=== PATIENT | female | born 1975 | race Caucasian/White ===

== ENCOUNTER → 2018-03-19 15:11 | Outpatient (CLI) | payer OTHER, SELFPAY ==
--- NOTE | 2018-03-19 15:18 | RAD_ITS ---
STUDY: X-RAY - RIGHT HAND, ATTENTION 4TH FINGER REASON FOR EXAM: Female, 42 years old. Right 4th digit injury, bruising, pain near distal interphalangeal joint. TECHNIQUE: 3 view(s) of the finger were obtained. COMPARISON: None. FINDINGS: There appears to be minimal soft tissue swelling of the 4th digit. No dislocation. There is a curvilinear slender lucency traversing the mid to distal diaphysis of the middle phalanx, 4th digit. This appears to have corticated margins, favoring nutrient vessel. Possible nondisplaced phalangeal fracture. RAD/Finger(s) Min 2 Views IMPRESSION: 4th digit middle phalanx, slender lucency favoring nutrient vessel. Nondisplaced fracture not entirely excluded. Minimal soft tissue swelling. Electronically Signed: Sergei Landry, at 10:47 EDT Tel , Service support ,
== END ==
PROVIDERS: Family Provider Family Medicine; PCP Family Medicine; Visit Provider Family Medicine
DX: S69.91XA Unspecified injury of right wrist, hand and finger(s), initial encounter (principal)
CPT/HCPCS: 73140

== ENCOUNTER → 2018-12-02 09:22 | Outpatient (CLI) | payer OTHER, SELFPAY ==
[2018-12-02 12:42] LABS: Mean Corp Hgb Conc 32.6 g/gl (32-36); Mean Corpuscular Hgb 30.2 pg (27.0-32.0); Mean Corpuscular Volume 92.7 fL (81-99); Mean Platelet Vol. 9.2 fl (6.2-12.0); Platelet Count 299 K/mm3 (150-450); RBC Distribution Width SD 43.5 fl (35.1-43.9); Red Blood Count 4.64 M/mm3 (4.2-5.4); White Blood Count 9.5 K/mm3 (4.4-11.0)
[2018-12-02 12:44] LABS: Scan Indicated on CBC? Y/N NO
[2018-12-02 12:58] LABS: Vitamin D,25 Hydroxy 54.9 ng/mL (29.95-100.01)
[2018-12-02 13:03] LABS: Anion Gap 9 (5-15); BUN 10 mg/dL (7-18); BUN/Creat Ratio 12.1 RATIO (10-20); Calcium,Total 8.9 mg/dL (8.5-10.1); Chloride 102 mmol/L (98-107); Cholesterol 238 mg/dL (200); Creatinine, Serum 0.83 mg/dL (0.55-1.02); EST Glomerular Filtration Rate 80 mL/min (>60); Est Glom Filt Rate - Afr Amer 97 mL/min (>60); Glucose 107 mg/dL (74-106); High Density Lipoprotein 41 mg/dL; Potassium 4.1 mmol/L (3.5-5.1); Sodium Level 137 mmol/L (136-145); Triglycerides 248 mg/dL; Very Low Density Lipoprotein 50 mg/dL (5-40)
== END ==
LOC: MTLAB 09:25
PROVIDERS: Family Provider Family Medicine; PCP Family Medicine; Referring Provider Family Medicine; Visit Provider Family Medicine
DX: Z13.1 Encounter for screening for diabetes mellitus (principal); Z13.220 Encounter for screening for lipoid disorders; E55.9 Vitamin D deficiency, unspecified; R10.13 Epigastric pain
CPT/HCPCS: 36415; 80048; 80061; 82306; 85027

== ENCOUNTER → 2020-03-05 10:27 | Outpatient (CLI) | payer OTHER, SELFPAY ==
--- NOTE | 2020-03-05 10:33 | RAD_ITS ---
STUDY: X-RAY - LUMBAR SPINE REASON FOR EXAM: Female, 44 years old. Injury many years ago, fell on tailbone -- back pain now and to the left side TECHNIQUE: 3 view(s) of the lumbar spine were obtained. COMPARISON: None FINDINGS: There is straightening of the normal lumbar lordosis. There is a mild levoscoliosis of the lumbar spine. There is a normal alignment of the vertebrae. Mild degree of spondylosis at the L3-L4 L4-L5 and L5-S1 levels. Disc space narrowing at the L3-L4, L4-L5 and L5-S1 levels. The soft tissue structures are unremarkable. RAD/Lumbar Spine 2 or 3 Views IMPRESSION: Degenerative changes of the spine, as detailed above. Mild levoscoliosis. Straightening of the normal lumbar lordosis. Electronically Signed: Anders Epperson, at 10:54 EDT , Service support ,
== END ==
PROVIDERS: PCP Family Medicine; Referring Provider Family Medicine; Visit Provider Family Medicine
DX: M54.5 Low back pain (principal)
CPT/HCPCS: 72100

== ENCOUNTER → 2020-05-18 13:35 | Outpatient (CLI) | payer OTHER, SELFPAY ==
[2020-05-18 15:19] LABS: Hematocrit 41.3 % (37-47); Hemoglobin 13.4 g/dL (12.0-15.0); Mean Corp Hgb Conc 32.4 g/dL (32-36); Mean Corpuscular Hgb 29.6 pg (27.0-32.0); Mean Corpuscular Volume 91.2 fL (81-99); Mean Platelet Vol. 8.8 fl (6.2-12.0); Platelet Count 345 K/mm3 (150-450); RBC Distribution Width CV 13.2 % (11.6-14.6); RBC Distribution Width SD 43.8 fl (35.1-43.9); Red Blood Count 4.53 M/mm3 (4.2-5.4)
[2020-05-18 16:04] LABS: ALB/GLOB Ratio 1.2 RATIO (0.9-2.4); AST(SGOT) 22 U/L (15-37); Alanine Aminotransfer ALT/SGPT 40 U/L (13-56); Albumin, Serum 4.1 g/dL (3.2-5.0); Alkaline Phosphatase 107 U/L (45-117); Anion Gap 4 (5-15); BUN 11 mg/dL (7-18); BUN/Creat Ratio 14.6 RATIO (10-20); Chloride 106 mmol/L (98-107); Creatinine, Serum 0.76 mg/dL (0.55-1.02); EST Glomerular Filtration Rate 88 mL/min (>60); Est Glom Filt Rate - Afr Amer 107 mL/min (>60); Globulin 3.5 g/dL (2.2-4.2); Glucose 95 mg/dL (74-106); Potassium 3.7 mmol/L (3.5-5.1); Protein, Total 7.6 g/dL (6.4-8.2); Sodium Level 138 mmol/L (136-145); Thyroid Stim Hormone (TSH) 1.66 uIU/mL (0.358-3.74)
== END ==
LOC: MFPLAB 13:36
PROVIDERS: PCP Family Medicine; Referring Provider Family Medicine; Visit Provider Family Medicine
DX: M79.89 Other specified soft tissue disorders (principal)
CPT/HCPCS: 36415; 80053; 84443; 85027

== ENCOUNTER → 2020-06-10 13:51 | Outpatient (CLI) | payer OTHER, SELFPAY ==
--- NOTE | 2020-06-10 13:55 | ECHOD_ITS ---
Reason For Study: Leg Swelling Procedure This was a 2D Doppler, Color Flow transthoracic echocardiogram. Exam performed in department. Left Ventricle Normal LV size. Left ventricular systolic function is normal. The estimated ejection fraction is 55 %. Normal diastology for age. No regional wall motion abnormalities noted. Right Ventricle Normal RV size. Normal systolic function. Atria Normal left atrium. Mitral Valve Normal mitral valve. Tricuspid Valve Normal tricuspid valve. Aortic Valve Normal aortic valve. Pulmonic Valve Normal pulmonic valve. Great Vessels Normal aortic root. The pulmonary artery is normal size. Normal inferior vena cava. Pericardium/Pleural No pericardial effusion. MMode/2D Measurements & Calculations LVIDd: 4.2 cm IVSd: 0.97 cm Ao root diam: 2.8 cm LVIDs: 2.9 cm LVPWd: 1.0 cm RVDd: 2.3 cm FS: 31.9 % LAV(MOD-bp): 23.3 ml LVAd ap4: 20.8 cm2 SV(MOD-sp4): 29.2 ml LAV(MOD-bp) Indexed: 12.2 ml/m2 EDV(MOD-sp4): 46.9 ml LAV(MOD-sp2): 20.3 ml EDV(sp4-el): 48.2 ml LAV(MOD-sp4): 24.9 ml LVAs ap4: 11.3 cm2 ESV(MOD-sp4): 17.7 ml ESV(sp4-el): 17.7 ml EF(MOD-sp4): 62.2 % EF(sp4-el): 63.3 % SV(sp4-el): 30.5 ml LA A4 area: 12.0 cm2 LA dimension(2D): 3.2 cm RA A4 area: 8.4 cm2 Doppler Measurements & Calculations MV E max jimmie: 66.2 cm/sec Lat Peak E' Jimmie: 16.0 cm/sec Med Peak E' Jimmie: 7.6 cm/sec MV A max jimmie: 83.1 cm/sec E/E' lat: 4.1 E/E' med: 8.8 MV E/A: 0.80 Ao V2 max: 135.2 cm/sec LV V1 max: 105.3 cm/sec PA V2 max: 89.6 cm/sec Ao max P.3 mmHg LV V1 max P.4 mmHg Ao V2 mean: 94.9 cm/sec Ao mean P.0 mmHg Ao V2 VTI: 22.1 cm TR max jimmie: 194.5 cm/sec TR max P.1 mmHg Interpretation Summary Normal LV size. Left ventricular systolic function is normal. The estimated ejection fraction is 55 %. Structurally normal valves. Ordering Physician: Hubert Ge Referring Physician: Hubert Ge Performed By: Alea Watkins, BRANNON, RVT
== END ==
LOC: CVS 13:54
PROVIDERS: PCP Family Medicine; Referring Provider Family Medicine; Visit Provider Family Medicine
DX: M79.89 Other specified soft tissue disorders (principal)
CPT/HCPCS: 93306

== ENCOUNTER 2020-11-16 09:41 | Outpatient (RCR) | payer OTHER, SELFPAY | END 2020-11-16 23:59 | LOC: IMMUN 09:41 | PROVIDERS: PCP Family Medicine; Visit Provider Family Medicine | DX: Z23 Encounter for immunization (principal) | CPT/HCPCS: 0011A; 0012A; 91301 ==

== ENCOUNTER → 2020-12-13 09:02 | Outpatient (CLI) | payer OTHER, SELFPAY ==
[2020-12-06 08:54] VITALS: BMI 31.9
--- NOTE | 2020-12-13 09:08 | RAD_ITS ---
STUDY: X-RAY - PARANASAL SINUSES REASON FOR EXAM: Female, 45 years old. Headaches across forehead TECHNIQUE: 3 view(s) of the paranasal sinuses were obtained. COMPARISON: None. FINDINGS: Normal visualized frontal, maxillary, ethmoidal and sphenoid sinuses. Normal visualized facial bones. The soft tissue structures are unremarkable. RAD/Sinuses min 3 Views IMPRESSION: Normal x-rays of the paranasal sinuses. Electronically Signed: Anders Epperson MD at 10:21 EST , Service support ,
[2020-12-13 12:08] LABS: Erythrocyte Sedimentation Rate 6 mm/hr (0-30)
[2020-12-13 12:10] LABS: Absolute Lymphocyte Count 2.88 X10^3/uL (0.83-4.51); Absolute Neutrophil Count 6.2 X10^3/uL (2.0-7.7); Basophil# 0.04 X10^3/uL; Basophil% 0.4 % (0-1); Eosinophil# 0.07 X10^3/uL; Eosinophils% 0.7 % (0-5); Hemoglobin 13.9 g/dL (12.0-15.0); Lymphocyte # 2.88 X10^3/ul (4.0); Lymphocyte % 29.5 % (19-41); Mean Corp Hgb Conc 33.9 g/dL (32-36); Mean Corpuscular Volume 88.6 fL (81-99); Mean Platelet Vol. 9.2 fl (6.2-12.0); Monocyte% 5.1 % (0-10); NRBC Flagged by Analyzer 0 % (0-5); Neutrophil # 6.19 X10^3/uL (2.7-7.7); Neutrophil % 63.6 % (47-70); Platelet Count 333 K/mm3 (150-450); RBC Distribution Width SD 39.1 fl (35.1-43.9); Red Blood Count 4.63 M/mm3 (4.2-5.4); White Blood Count 9.8 K/mm3 (4.4-11.0)
[2020-12-13 12:31] LABS: Vitamin B12 428 pg/mL (211-911); Vitamin D,25 Hydroxy 29.4 ng/mL
[2020-12-13 12:34] LABS: Hemoglobin A1c 6.4 % (3.8-5.6)
[2020-12-13 12:41] LABS: AST(SGOT) 22 U/L (15-37); Alanine Aminotransfer ALT/SGPT 42 U/L (13-56); Albumin, Serum 3.8 g/dL (3.2-5.0); Alkaline Phosphatase 108 U/L (45-117); Anion Gap 9 (5-15); BUN 11 mg/dL (7-18); BUN/Creat Ratio 14.2 RATIO (10-20); Calcium,Total 9.1 mg/dL (8.5-10.1); Chloride 104 mmol/L (98-107); Creatinine, Serum 0.77 mg/dL (0.55-1.02); EST Glomerular Filtration Rate 86 mL/min (>60); Est Glom Filt Rate - Afr Amer 104 mL/min (>60); Globulin 3.9 g/dL (2.2-4.2); Glucose 133 mg/dL (74-106); Iron 65 ug/dL (50-170); Potassium 3.6 mmol/L (3.5-5.1); Protein, Total 7.7 g/dL (6.4-8.2); Sodium Level 137 mmol/L (136-145); Thyroid Stim Hormone (TSH) 1.59 uIU/mL (0.358-3.74)
== END ==
LOC: MTLAB 09:04
PROVIDERS: PCP Family Medicine; Referring Provider Family Medicine; Visit Provider Family Medicine
DX: R51.9 Headache, unspecified (principal); R53.83 Other fatigue; E11.9 Type 2 diabetes mellitus without complications; E55.9 Vitamin D deficiency, unspecified
CPT/HCPCS: 36415; 70220; 80053; 82306; 82533; 82607; 83036; 83540; 84443; 85025; 85652

== ENCOUNTER → 2020-12-27 08:19 | Outpatient (CLI) | payer OTHER, SELFPAY ==
[2020-12-06 08:54] VITALS: BMI 31.9
--- NOTE | 2020-12-27 08:21 | BI_ITS ---
MAMMOGRAPHY - BILATERAL SCREENING REASON FOR EXAM: Female, 45 years old. Routine annual screening examination. PERTINENT HISTORY: Non-contributory. TECHNIQUE: Digital bilateral breast loren (3D mammographic acquisition) in the CC and MLO projections. 2-D mediolateral oblique (MLO) and craniocaudad (CC) views of both breasts were obtained. CAD: Full Field Digital Mammography with Computer Added Detection was performed. COMPARISON: Comparison is made with prior outside examination dated 12/03/2019. FINDINGS: Breast Composition: The breasts are extremely dense, which lowers the sensitivity of mammography. There are no dominant masses or suspicious calcifications. Small benign-appearing bilateral axillary vessels. No other significant abnormalities are identified. There has been no significant change since the prior study. BI/SCRN MAMM (CAD)W/LOREN BILAT IMPRESSION: Stable bilateral screening mammogram. Yearly follow-up mammogram recommended. (A) ASSESSMENT CATEGORY: BIRADS Category 2: Benign. A letter regarding these results will be sent to the patient by the facility within 30 days. Approximately 10% of breast cancers are not detected by mammography. A normal mammogram should not delay biopsy of a clinically suspicious abnormality. [id number] Electronically Signed: Anders Epperson MD at 9:45 EST , Service support ,
== END ==
PROVIDERS: PCP Family Medicine; Referring Provider Obstetrics & Gynecology; Visit Provider Obstetrics & Gynecology
DX: Z12.31 Encounter for screening mammogram for malignant neoplasm of breast (principal)
CPT/HCPCS: 77063; 77067

== ENCOUNTER → 2021-03-10 14:08 | Outpatient (CLI) | payer OTHER, SELFPAY ==
[2021-03-10 13:21] VITALS: BMI 32.3
[2021-03-10 14:22] LABS: Absolute Lymphocyte Count 3.47 X10^3/uL (0.83-4.51); Basophil# 0.04 X10^3/uL; Basophil% 0.3 % (0-1); Eosinophil# 0.13 X10^3/uL; Eosinophils% 1.1 % (0-5); Hematocrit 38.4 % (37-47); Hemoglobin 13.2 g/dL (12.0-15.0); Lymphocyte # 3.47 X10^3/ul (0.83-4.51); Lymphocyte % 28.3 % (19-41); Mean Corp Hgb Conc 34.4 g/dL (32-36); Mean Corpuscular Hgb 30.1 pg (27.0-32.0); Mean Corpuscular Volume 87.5 fL (81-99); Mean Platelet Vol. 8.3 fl (6.2-12.0); Monocyte# 0.56 X10^3/uL; Monocyte% 4.6 % (0-10); NRBC Flagged by Analyzer 0 % (0-5); Neutrophil # 7.96 X10^3/uL (2.7-7.7); Platelet Count 359 K/mm3 (150-450); RBC Distribution Width CV 12.5 % (11.6-14.6); RBC Distribution Width SD 40.1 fl (35.1-43.9); Red Blood Count 4.39 M/mm3 (4.2-5.4); White Blood Count 12.3 K/mm3 (4.4-11.0)
[2021-03-10 14:48] LABS: Prolactin 15.5 ng/mL; Thyroid Stim Hormone (TSH) 1.75 uIU/mL (0.358-3.74)
== END ==
PROVIDERS: PCP Family Medicine; Referring Provider Obstetrics & Gynecology; Visit Provider Obstetrics & Gynecology
DX: Z13.29 Encounter for screening for other suspected endocrine disorder (principal); N93.9 Abnormal uterine and vaginal bleeding, unspecified
CPT/HCPCS: 36415; 84146; 84443; 85025

== ENCOUNTER → 2021-03-21 12:04 | Outpatient (CLI) | payer OTHER, SELFPAY ==
[2021-03-10 13:21] VITALS: BMI 32.3
--- NOTE | 2021-03-21 12:08 | US_ITS ---
STUDY: ULTRASOUND OF THE FEMALE PELVIS - COMPLETE REASON FOR EXAM: Female, 45 years old. AUB LMP: 03/15/2021 TECHNIQUE: Transabdominal and Transvaginal TECHNICAL QUALITY: Adequate. COMPARISON: None. FINDINGS: The uterus is anteverted and is in a midline position. The uterus measures 7.3 cm x 4.6 centimeters x 4.4 cm. There is a Nabothian cyst of the cervix. The endometrium measures 9 mm in thickness, and is heterogeneous (striated). There is no demonstrated endometrial mass. There is a 1 cm x 1 cm x 0.9 cm uterine fibroid. I.U.D. - The patient does not have an I.U.D. The right ovary is visualized. The right ovary measures 1.4 cm x 2.6 cm x 1.8 cm. There is no right ovarian cyst or ovarian mass. There is no visualized right adnexal mass or complex lesion. There is normal arterial and normal venous vascularity. The left ovary is visualized. The left ovary measures 2.9 cm x 1.5 cm x 1.5 cm. There is no left ovarian cyst or ovarian mass. There is no visualized left adnexal mass or complex lesion. There is normal arterial and normal venous vascularity. There is no fluid in the cul-de-sac. The pre void volume of the bladder was 210 ml. US/Transvaginal Non- IMPRESSION: Small uterine fibroid. Heterogeneous endometrial thickness. Electronically Signed: Anders Epperson MD at 14:29 EDT , Service support ,
--- NOTE | 2021-03-21 12:08 | US_ITS ---
STUDY: ULTRASOUND OF THE FEMALE PELVIS - COMPLETE REASON FOR EXAM: Female, 45 years old. AUB LMP: 03/15/2021 TECHNIQUE: Transabdominal and Transvaginal TECHNICAL QUALITY: Adequate. COMPARISON: None. FINDINGS: The uterus is anteverted and is in a midline position. The uterus measures 7.3 cm x 4.6 centimeters x 4.4 cm. There is a Nabothian cyst of the cervix. The endometrium measures 9 mm in thickness, and is heterogeneous (striated). There is no demonstrated endometrial mass. There is a 1 cm x 1 cm x 0.9 cm uterine fibroid. I.U.D. - The patient does not have an I.U.D. The right ovary is visualized. The right ovary measures 1.4 cm x 2.6 cm x 1.8 cm. There is no right ovarian cyst or ovarian mass. There is no visualized right adnexal mass or complex lesion. There is normal arterial and normal venous vascularity. The left ovary is visualized. The left ovary measures 2.9 cm x 1.5 cm x 1.5 cm. There is no left ovarian cyst or ovarian mass. There is no visualized left adnexal mass or complex lesion. There is normal arterial and normal venous vascularity. There is no fluid in the cul-de-sac. The pre void volume of the bladder was 210 ml. US/Pelvic (Non ) IMPRESSION: Small uterine fibroid. Heterogeneous endometrial thickness. Electronically Signed: Anders Epperson MD at 14:29 EDT , Service support ,
== END ==
PROVIDERS: PCP Family Medicine; Referring Provider Obstetrics & Gynecology; Visit Provider Obstetrics & Gynecology
DX: N93.9 Abnormal uterine and vaginal bleeding, unspecified (principal); D25.9 Leiomyoma of uterus, unspecified
CPT/HCPCS: 76830; 76856

== ENCOUNTER 2021-04-19 10:22 | Day surgery (SDC) | payer OTHER, SELFPAY ==
[2021-03-31 13:06] VITALS: BMI 32.3
[2021-04-19] VITALS (9 sets, daily range): BP systolic 96–135; BP diastolic 56–84; PULSE 57–104; RESP 16–18; TEMP 36.1–37.1; O2SAT 93–100; BMI 30.9
--- NOTE | 2021-04-19 10:37 | PCM.HP.OB ---
HPI - General HPI Narrative JANETT CALI, is a 45 F who presents for endometrial ablation for abnormal uterine bleeding PFSH PFSH Medical History (Updated 04/14/21 @ 10:07 by Mehnaz Wood) Abnormal Pap smear of cervix ADD (attention deficit disorder) Annular psoriasis Arthritis Back pain Bipolar 1 disorder Diabetes Dietary restriction Easy bruising Former smoker Frequent UTI GERD (gastroesophageal reflux disease) History of edema Hx of echocardiogram Injury of head and neck Home Medications apremilast 30 mg tablet 30 mg PO QHS 12/06/20 [History Last Taken Unknown] cariprazine 1.5 mg capsule 1.5 mg PO DAILY 12/06/20 [History Last Taken Unknown] cetirizine 10 mg tablet 10 mg PO QHS 12/06/20 [History Last Taken Unknown] coenzyme Q10 75 mg capsule 75 mg PO DAILY 12/06/20 [History Last Taken Unknown] cranberry 500 mg capsule 500 mg PO QHS 12/06/20 [History Last Taken Unknown] dexlansoprazole 60 mg capsule,biphase delayed release 60 mg PO DAILY 12/06/20 [History Last Taken Unknown] fluoxetine 20 mg capsule 40 mg PO DAILY 12/06/20 [History Last Taken Unknown] metformin 500 mg tablet 500 mg PO DAILY 12/06/20 [History Last Taken Unknown] lisdexamfetamine [Vyvanse] 60 mg PO DAILY 04/14/21 [History Last Taken Unknown] Allergy/AdvReac Type Severity Reaction Status Date / Time Penicillins AdvReac vaginal Verified 04/14/21 09:54 yeast infection Family History Mother Diabetes Heart disease Hypertension CVA (cerebral vascular accident) Surgical History (Updated 04/14/21 @ 10:07 by Mehnaz Wood) History of esophagogastroduodenoscopy (EGD) Status post colposcopy Social History Smoking Status: Former smoker alcohol intake: current alcohol intake frequency: holidays/special occasions only substance use type: does not use caffeine: Yes what type of physical activity do you participate in: aerobics and weight training frequency: 5-6 times per week seatbelt use: always do you feel safe at home: Yes additional social history: - Ramírez Patient works at [employer] History 3 Elective abortions Hx Para 2 Spontaneous abortions Hx # Term Pregnancies Ectopic pregnancies Hx # Pregnancies Multiple births # of living children Past Pregnancies Del. Date Name GA/Weeks Outcome Route Bth Weight Infant Gen Labor Lgth Anesthesia Del Locatn Provider FOB Unknown Tera Unknown Alicia ROS Eyes Eyes: Reports systems reviewed and no addt'l complaints, except as documented ENT HEENT: Reports systems reviewed and no addt'l complaints, except as documented Cardiovascular Cardiovascular: Reports systems reviewed and no addt'l complaints, except as documented Respiratory/Chest Respiratory/Chest: Reports systems reviewed and no addt'l complaints, except as documented Gastrointestinal Gastrointestinal: Reports systems reviewed and no addt'l complaints, except as documented Genitourinary Genitourinary: Reports systems reviewed and no addt'l complaints, except as documented Musculoskeletal Musculoskeletal: Reports systems reviewed and no addt'l complaints, except as documented Integumentary Integumentary: Reports systems reviewed and no addt'l complaints, except as documented Neurologic Neurologic: Reports systems reviewed and no addt'l complaints, except as documented Psychiatric Psychiatric: Reports systems reviewed and no addt'l complaints, except as documented Endocrine Endocrinology: Reports systems reviewed and no addt'l complaints, except as documented Hematologic/Lymphatic Hematologic/Lymphatic: Reports systems reviewed and no addt'l complaints, except as documented Allergic/Immunologic Allergic/Immunologic: Reports systems reviewed and no addt'l complaints, except as documented Vital Signs Vital Signs Vital Signs: Weight Body Mass Index (BMI) 32.3 Physical Exam Const alert, oriented x3, no apparent distress, average body habitus, healthy appearing and well nourished HEENT normocephalic and moist oral mucous membranes Head and Scalp: atraumatic Eyes PERRL and EOMs intact bilaterally Neck full ROM Resp normal respiratory effort, no retractions and no use of accessory muscles Cardio regular rate and regular rhythm GI soft to palpation, non-tender and non-distended Extremity normal to inspection and full ROM Skin no rashes or lesions noted Neuro no focal motor deficits and no sensory deficits noted Psych mental status grossly normal, affect normal, speech normal and activity/motor behavior normal Labs Labs Labs: Hct 38.4 % (37-47) Hgb 13.2 g/dL (12.0-15.0) Assessment & Plan (1) Abnormal uterine bleeding (AUB): PLAN: Patient presents for endometrial ablation Has failed depo-provera and OCPs Had normal CBC and TSH Ultrasound shows normal uterus aside from small fibroid Patient desires endometrial ablation. I have discussed with the patient the risks, benefits, and alternatives of the procedure which include but are not limited to risks of anesthesia, bleeding, infection, possible damage to bowel, bladder, or surrounding vasculature which could lead to additional surgery to evaluate any complications. Will obtain sampling at the time of surgery. Aware that if this were to show hyperplasia or cancer, she could require a hysterectomy for treatment. Discussed that after ablation, we will not be able to obtain reliable sampling of the endometrium which could result in delay in diagnosis of hyperplasia or cancer if this develops in the future. Discussed risk of failure and that if she were to begin having heavy bleeding again, the next step in management would be a hysterectomy. Patient agrees to procedure and wishes to proceed.
[2021-04-19] MEDS: Lactated Ringers 1,000 ML 75 ML IV (10:40)
--- NOTE | 2021-04-19 10:41 | PCM.DC ---
Discharge Instructions Diet Discharge Diet: No restrictions Activity Discharge Activity: Return to Normal Activity and May Not Drive (while taking narcotic pain medications.) May resume sexual activity in: 4 weeks (nothing in the vagina for 4 weeks.) Dressing / Incision Call your doctor if you observe: Fever of 101 or Higher and Using more than 1 pad per hour Follow Up Care Test Results: Test results from this visit will be discussed in further detail at your follow-up appointment, if applicable. Discharge Plan Admission Primary Reason for Your Visit: Endometrial ablation Attending Provider: Amanda Carrion Primary Care Provider: Hubert Ge Instructions Patient Instructions: Endometrial Ablation Discharge Orders/Prescriptions Prescriptions: New ibuprofen 800 mg tablet 800 mg PO Q8H PRN (Reason: pain) Qty: 30 RF: 1 Continued fluoxetine [Prozac] 20 mg capsule 40 mg PO DAILY RF: 0 metformin 500 mg tablet 500 mg PO DAILY RF: 0 cetirizine [Zyrtec] 10 mg tablet 10 mg PO QHS RF: 0 Ultra CoQ10 75 mg capsule 75 mg PO DAILY RF: 0 cranberry 500 mg capsule 500 mg PO QHS RF: 0 Otezla 30 mg tablet 30 mg PO QHS RF: 0 Dexilant 60 mg capsule,biphase delayed releas 60 mg PO DAILY RF: 0 Vraylar 1.5 mg capsule 1.5 mg PO DAILY RF: 0 Vyvanse 60 mg Capsule 60 mg PO DAILY RF: 0 Referrals / Follow Up: Hubert Ge MD [Primary Care Provider] - Disposition Disposition (needs filled in before D/C Order can be placed): Home, Self Care
[2021-04-19 10:54] LABS: Internal QC Validated? YES +Cl - CLEAR BKGD
[2021-04-19 10:57] LABS: Pregnancy, Urine Negative Negative
--- NOTE | 2021-04-19 11:21 | OP.PCM_ITS ---
Problems Associated Problem List Diagnoses (1) Abnormal uterine bleeding (AUB): Report of Operation Date of Procedure: 04/19/21 Pre-Operative Diagnosis: Abnormal uterine bleeding Post-Operative Diagnosis: Same Surgery/Procedure Performed:: Hysteroscopy, D&C, Ceci endometrial ablation Description of Surgical Findings:: Normal-appearing uterus and cervix. Normal- appearing uterine lining with both tubal ostia visible. Surgeon: Amanda Carrion casting room operator: None Type of Anesthesia: MAC Specimen's removed: C Estimated Blood Loss (mL): 10 ml Description of Procedure: Patient was taken to the operating where anesthesia with difficulty. She was prepped and draped in the dorsolithotomy position with yellowfin stirrups. A weighted speculum was placed in the posterior aspect of the vagina and the anterior lip of the cervix was grasped with a single-tooth tenaculum. Cervix was sequentially dilated to accommodate a 5 mm hysteroscope. The hysteroscope was introduced into the uterine cavity and the above findings were noted. The hysteroscope was then removed and a sharp curettage was performed. The total cavity length was found to be 5cm. The Ceci device was inserted into the uterine cavity and seated within the cavity. Air was introduced to create a cervical seal and the seal was noted to be adequate. The Ceci device was activated and 2 safety checks were passed. The ablation was performed for 120 seconds. The Ceci device was removed from the uterine cavity. The tenaculum was removed and the cervix appeared hemostatic. All instruments were removed from the vagina. The patient was awakened from anesthesia and taken to recovery room in stable condition. Complications None apparent Admit VTE Documentation VTE Present on Admission: No VTE Mechan Device Prophylaxis: SCD's VTE Pharm Prophylaxis ordered?: No Procedures Urinary/Genital [id number]: [id number] Ceci//Novasure
--- NOTE | 2021-04-19 12:00 | EMB_PTH ---
PATIENT: JANETT CALI LOC: [facility] [place] U#:[id number] AGE/SX: 45/F ROOM: RE04/19/[address]: Dr. Amanda Carrion MD : 1975 BED: DIS: 04/19/2021 SPEC #: [id number] RECD: 04/19/21 14:36 STATUS: LUIGI RERadha #: [id number] KONRAD: 04/19/21 12:[address]: Amanda Carrion DEPT: SURGICAL PATHOLOGY RECD BY: Neetu Minor ENTERED: 04/20/21 07:19 SP TYPE: ENDOM BX/C ARLEN DR: Dr. Kaleb Ge MD Tissues: Endometrium, NOS Procedures: Surgery Specimen Level IV HEADER OPERATION: Hysteroscopy, D & C, Ceci, endometrial ablation PRE-OP DIAGNOSIS: Abnormal uterine bleeding TISSUE SUBMITTED: Endometrial curettings MICROSCOPIC DIAGNOSIS Endometrial curettings: Consistent with exogenous hormone effects. Fragments of benign endocervical mucosa with acute and chronic inflammation. See comment. MACKENZIE:yessica 04/21/2021 COMMENT A few fragments show polypoid appearance may represent fragments of benign endometrial polyp . MICROSCOPIC DESCRIPTION Slides are reviewed. GROSS DESCRIPTION Received in fixative is one container labeled with the patient's name and designated endometrial curettings. The specimen consists of multiple fragments of hemorrhagic soft tissue that in aggregate measure 5 x 3 x 0.3 cm. The entire specimen is submitted in two cassettes. / MACKENZIE:yessica 04/20/21 TC:5 CPT: 91724
[2021-04-19 12:16] LABS: Bedside Glucose 130 mg/dL (70-110)
[2021-04-19] MEDS: HYDROcodone Bitartrate/Apap 5/325 Tablet PO (13:13)
[2021-04-19] MEDS: Ibuprofen 400 MG Tablet 800 MG PO (15:18)
[2021-04-19] MEDS: Scopolamine 1mg/72hr Patch 1 PATCH TD (15:34)
--- NOTE | 2021-04-19 15:34 | SUR.PHASEII ---
Patient vomited after ibuprofen administration
== END 2021-04-19 16:08 | disposition home or self-care (01) ==
LOC: SDC 10:23 → AC 10:26
PROVIDERS: Anesthesiology; PCP Family Medicine; Referring Provider Obstetrics & Gynecology; Visit Provider Obstetrics & Gynecology
PROC: 0U5B8ZZ Destruction of Endometrium, Via Natural or Artificial Opening Endoscopic (ICD-10-PCS; CPT 58558; principal; 2021-04-19 11:45)
DX: N93.9 Abnormal uterine and vaginal bleeding, unspecified (principal); E11.9 Type 2 diabetes mellitus without complications; F31.9 Bipolar disorder, unspecified; K21.9 Gastro-esophageal reflux disease without esophagitis; F98.8 Other specified behavioral and emotional disorders with onset usually occurring in childhood and adolescence; L40.8 Other psoriasis; M19.90 Unspecified osteoarthritis, unspecified site; Z87.440 Personal history of urinary (tract) infections; Z79.84 Long term (current) use of oral hypoglycemic drugs; Z79.899 Other long term (current) drug therapy; Z87.891 Personal history of nicotine dependence
CPT/HCPCS: 58563; 81025; 82962; 88305; J7120; J2405

== ENCOUNTER → 2021-09-23 | Outpatient (CLI) | payer OTHER, SELFPAY | END | disposition home or self-care (01) | LOC: LABSPEC 14:49 | PROVIDERS: PCP Family Medicine; Visit Provider Family Medicine | DX: Z20.822 Contact with and (suspected) exposure to COVID-19 (principal) | CPT/HCPCS: 87633; 87635; U0005; U0003 ==

== ENCOUNTER → 2022-10-02 | Outpatient (CLI) | payer BC, SELFPAY | END | disposition home or self-care (01) | PROVIDERS: PCP Family Medicine; Referring Provider Family Medicine; Visit Provider Family Medicine | DX: Z00.00 Encounter for general adult medical examination without abnormal findings (principal) ==

== ENCOUNTER → 2022-12-28 | Outpatient (CLI) | payer OTHER, SELFPAY ==
[2022-12-28 17:49] LABS: Hematocrit 39.4 % (37-47); Hemoglobin 13.3 g/dL (12.0-15.0); Mean Corp Hgb Conc 33.8 g/dL (32-36); Mean Corpuscular Hgb 29.6 pg (27.0-32.0); Mean Corpuscular Volume 87.6 fL (81-99); Mean Platelet Vol. 9.1 fl (6.2-12.0); Platelet Count 332 K/mm3 (150-450); RBC Distribution Width CV 11.9 % (11.6-14.6); White Blood Count 9.4 K/mm3 (4.4-11.0)
[2022-12-28 18:37] LABS: Anion Gap 11 (5-15); BUN 10 mg/dL (7-18); BUN/Creat Ratio 15.7 RATIO (10-20); Calcium,Total 9.3 mg/dL (8.5-10.1); Chloride 104 mmol/L (98-107); Creatinine, Serum 0.64 mg/dL (0.55-1.02); EST Glomerular Filtration Rate 106 mL/min (>60); Est Glom Filt Rate - Afr Amer 128 mL/min (>60); Glucose 197 mg/dL (74-106); Sodium Level 138 mmol/L (136-145)
[2022-12-28 19:31] LABS: D-Dimer Quantitative (DVT/PE) 0.58 FEU/ug/m (0.27-0.49)
== END | disposition home or self-care (01) ==
LOC: MFPLAB 16:11
PROVIDERS: PCP Family Medicine; Visit Provider Nurse Practitioner Family
DX: R07.9 Chest pain, unspecified (principal)
CPT/HCPCS: 36415; 80048; 85027; 85379

== ENCOUNTER → 2023-01-03 | Outpatient (CLI) | payer OTHER, SELFPAY ==
[2023-01-03 15:41] LABS: Insulin 20.6 mU/L (2.6-37.6)
[2023-01-03 15:51] LABS: ALB/GLOB Ratio 1.1 RATIO (0.9-2.4); AST(SGOT) 56 U/L (15-37); Alanine Aminotransfer ALT/SGPT 78 U/L (13-56); Albumin, Serum 4.1 g/dL (3.2-5.0); Alkaline Phosphatase 88 U/L (45-117); Anion Gap 8 (5-15); BUN 10 mg/dL (7-18); BUN/Creat Ratio 13.1 RATIO (10-20); Calcium,Total 10.2 mg/dL (8.5-10.1); Chloride 100 mmol/L (98-107); Cholesterol 229 mg/dL (200); Creatinine, Serum 0.76 mg/dL (0.55-1.02); EST Glomerular Filtration Rate 86 mL/min (>60); Est Glom Filt Rate - Afr Amer 104 mL/min (>60); Globulin 3.8 g/dL (2.2-4.2); Glucose 139 mg/dL (74-106); High Density Lipoprotein 40 mg/dL; Potassium 3.8 mmol/L (3.5-5.1); Protein, Total 7.9 g/dL (6.4-8.2); Sodium Level 135 mmol/L (136-145); Thyroid Stim Hormone (TSH) 1.81 uIU/mL (0.358-3.74); Triglycerides 308 mg/dL; Very Low Density Lipoprotein 62 mg/dL (5-40)
[2023-01-05 14:16] LABS: C-Peptide 4.4 ng/mL (1.1-4.4)
== END | disposition home or self-care (01) ==
LOC: MTLAB 12:32
PROVIDERS: PCP Family Medicine; Visit Provider Family Medicine
DX: E11.9 Type 2 diabetes mellitus without complications (principal)
CPT/HCPCS: 36415; 80053; 80061; 83525; 84443; 84681

== ENCOUNTER → 2025-02-18 | Outpatient (CLI) | payer BC, SELFPAY ==
--- NOTE | 2025-02-18 11:55 | RAD_ITS ---
PROCEDURE: HIP, UNI W/ PELVIS 2-3 VIEWS 02/18/2025 REASON FOR EXAM: R HIP PAIN TECHNIQUE: 3 view of the right hip FINDINGS: Bones: No fracture. Joints: Normal alignment. Soft tissues: Soft tissues are unremarkable. Other: RAD/HIP, UNI W/ Pelvis 2-3 Views IMPRESSION: NEGATIVE SINGLE VIEW HIP Reading Location: [id number]
== END | disposition home or self-care (01) ==
PROVIDERS: PCP Family Medicine; Referring Provider Family Medicine; Visit Provider Family Medicine
DX: M25.551 Pain in right hip (principal)
CPT/HCPCS: 73502